=== PATIENT | female | born 1965 | race Caucasian/White ===

== ENCOUNTER 2016-04-11 15:41 | Emergency (ER) | payer OTHER ==
[~2016-04-11] VITALS: Ht 162.6 cm; Wt 108.6 kg
[2016-04-11 15:44] VITALS: BP 152/89
--- NOTE | 2016-04-11 16:19 | ED EAR COMPLAINT ---
History of Present Illness General Chief Complaint: Ear Complaints Stated Complaint: EAR PAIN Source: patient Exam Limitations: no limitations Vital Signs & Intake/Output Vital Signs & Intake/Output Vital Signs Date Time Temp Pulse Resp B/P Pulse O2 O2 Flow FiO2 Ox Delivery Rate 04/11 1615 Room Air 04/11 1544 97.0 69 20 152/89 97 Room Air Allergies Uncoded Allergies: HAYFEVER (04/11/16) Triage Note: TRIAGE: PT TO ER C/C L EAR PAIN SINCE MIDDAY. Triage Nurses Notes Reviewed? yes Onset: Abrupt Duration: hour(s):, constant, continues in ED Timing: recent history Injury Environment: home Severity: moderate, severe No Modifying Factors: none HPI: 50-year-old female comes into emergency room for further evaluation of left ear pain. Patient reports that the symptoms have been going on since this morning. Sharp throbbing. Continuous. Pain radiates into her upper jaw. Denies any tooth pain. Denies any chest pain shortness of breath. Denies any trauma to the ear. Denies any other associated symptoms. (FRANCIS ALCAZAR) Reconcile Medications Cefuroxime Axetil (Cefuroxime) 500 MG TABLET 1 TAB PO BID otitis media Ciprofloxacin HCl/Dexameth (Ciprodex Otic Suspension) 0.3 %-0.1 % DROPS.SUSP 4 GTT OT BID ear infection Hydrocodone/Acetaminophen (Hydrocodon-Acetaminophen 5-325) 5 MG-325 MG TABLET 1-2 TAB PO Q4-6 PRN PRN pain Ibuprofen 800 MG TABLET 1 TAB PO TID pain Neomycin/Polymyxin B Sulf/Hc (Ilmkfnrw-Diaknrico-Lc Ear Susp) 3.5 MG/ML-10,000 UNIT/ML-1 % DROPS.SUSP 4 GTT OT TID ear infection (EDUARDO LEWIS,ALETA Miranda) Past History Travel History Traveled to [place] past 21 day No Medical History Any Pertinent Medical History? see below for history Neurological: multiple sclerosis EENT: NONE Cardiovascular: hypertension Respiratory: NONE Gastrointestinal: NONE Hepatic: NONE Renal: NONE Musculoskeletal: NONE Psychiatric: NONE Endocrine: NONE Blood Disorders: NONE Cancer(s): NONE MEN'S LOCKER ROOM ATTENDANT/Reproductive: NONE Surgical History Surgical History: non-contributory Psychosocial History What is your primary language Welsh Tobacco Use: Quit >30 days ago ETOH Use: occasional use Illicit Drug Use: denies illicit drug use Family History Hx Contributory? No (FRANCIS ALCAZAR) Review of Systems Review of Systems Constitutional: Reports: no symptoms. EENTM: Reports: see HPI. Respiratory: Reports: no symptoms. Cardiovascular: Reports: no symptoms. GI: Reports: no symptoms. Genitourinary: Reports: no symptoms. Musculoskeletal: Reports: no symptoms. Skin: Reports: no symptoms. Neurological/Psychological: Reports: no symptoms. Hematologic/Endocrine: Reports: no symptoms. Immunologic/Allergic: Reports: no symptoms. All Other Systems: Reviewed and Negative (FRANCIS ALCAZAR) Physical Exam Physical Exam General Appearance: well developed/nourished Head: atraumatic Eyes: Bilateral: normal appearance, EOMI. Ears: Left: swelling (left ear canal), Tympanic dull, other (artial cerumen impaction) . Nose: normal inspection Mouth/Throat: normal mouth inspection, pharynx normal Neck: normal inspection Cardiovascular/Respiratory: no respiratory distress Back: normal inspection Neurologic/Psych: awake, alert, oriented x 3, normal mood/affect Skin: intact, normal color, warm/dry (FRANCIS ALCAZAR) Progress Differential Diagnoses I considered the following diagnoses in my evaluation of the patient: Otitis media, otitis externa, mastoiditis, perforation, TMJ, dental infection, Plan of Care: see below Initial ED EKG: none (FRANCIS ALCAZAR) Departure Departure Disposition: HOME OR SELF CARE Condition: Stable Clinical Impression Primary Impression: Left otitis media Referrals: [facility] APRN (PCP/Family) Additional Instructions: Take cefuroxime and Ciprodex drops as prescribed. Follow-up with primary care doctor. Return if any concerns worsening symptoms. Please go over all results of today's visit with your primary care doctor. Contact your primary care doctor to let them know you were here in the emergency room. There may be nonspecific findings which may not be related to your visit today here in the emergency room but may require further evaluation and chronic monitoring by your primary care doctor. If you had a laceration today the chance of foreign body always remains. You should follow-up with your primary care doctor for recheck in 3-5 days for a wound check. If you had an x-ray done there is a chance that a fracture could have been missed on initial read and you should follow-up with your primary care doctor for repeat x-rays if symptoms persist. If your blood pressure was elevated here in the emergency room please have rechecked by her primary care doctor within the next 48 hours by your primary care doctor. If you were prescribed a narcotic here in the emergency room or any type of controlled substances you're not allowed to drive while taking this medication or operate any type of heavy machinery. Narcotics can make you feel lightheaded dizziness nausea and can cause constipation. You may need to garbage pick up worker a stool softener. Thank you for choosing [facility] emergency room. Please return to the emergency room immediately if you have any other concerns worsening of symptoms. Departure Forms: Customer Survey General Discharge Information Comments 04/11/2016 4:50:24 PM Patient clinically looks well. Nontoxic-appearing. In no apparent distress. TM is not able to be visualized completely due to partial cerumen impaction. Canal mildly inflamed. TM dull. Patient be treated for ear infection. Follow- up with primary care. No evidence of dental infection. Considered TMJ is a possibility as well. Denies any other associated symptoms. (MOE BLOCK,FRANCIS) Departure Prescriptions: Current Visit Scripts Cefuroxime Axetil (Cefuroxime) 1 TAB PO BID #20 TAB Ciprofloxacin HCl/Dexameth (Ciprodex Otic Suspension) 4 GTT OT BID #1 BOT Ibuprofen 1 TAB PO TID #30 TAB Hydrocodone/Acetaminophen (Hydrocodon-Acetaminophen 5-325) 1-2 TAB PO Q4-6 PRN PRN pain #10 TAB Neomycin/Polymyxin B Sulf/Hc (Nhqenncw-Flvbmaslq-Zd Ear Susp) 4 GTT OT TID #10 ML PA/INSPECTOR MACHINE [employer]ASS Co-Sign Statement Statement: ED Attending supervision documentation- [] I saw and evaluated the patient. I have also reviewed all the pertinent lab results and diagnostic results. I agree with the findings and the plan of care as documented in the PA's/INSPECTOR MACHINE C[employer] GLASS's documentation. [X] I have reviewed the ED Record and agree with the PA's/INSPECTOR MACHINE C[employer]'s documentation. [] Additions or exceptions (if any) to the PAs/INSPECTOR MACHINE C[employer] GLASS's note and plan are summarized below: [] (EDUARDO LEWIS,ALETA Miranda)
[2016-04-11] MEDS ORDERED: CEFUROXIME500 MG PO (16:25)
[2016-04-11] MEDS ORDERED: CIPRODEX OTIC7.5 ML OT (16:25)
[2016-04-11] MEDS ORDERED: IBUPROFEN800 M1 PO (16:31)
[2016-04-11] MEDS ORDERED: HYDROCODON-ACE1 EAC2 PO (16:31)
[2016-04-11] MEDS ORDERED: NEOMYCIN-POLYMY10 M1 OT (17:28)
== END 2016-04-11 16:36 ==
LOC: ERH 15:41
DX: H66.92 Otitis media, unspecified, left ear (principal)